=== PATIENT | female | born 1975 | race Caucasian/White ===

== ENCOUNTER 2016-08-16 07:00 | Day surgery (SDC) | payer OTHER ==
[~2016-08-16 07:00] MED LIST: FENTANYL PF 100 MCG/2 ML VIAL. IV PRN; HYDR-2762 PO; HYDROMORPHONE 2 MG/ML VIAL. IV PRN; IV RINGERS,LACTATED 1000ML 1,000 ML IV SCH; LIDOCAINE 1% 1 ML SYRINGE. ID PRN; METH-37 PO; MORPHINE SULFATE 2 MG/ML DISP.SYRIN. IV PRN; MULT1TAB52 PO; ONDANSETRON PF 4 MG/2 ML VIAL. IV PRN; PROCHLORPERAZINE 10 MG/2 ML VIAL. IV PRN
[2016-08-16] MEDS ORDERED: BUPIVACAINE-EPI 0.25%-1:200000 MPF 30 ML VIAL. ONE (07:01)
[2016-08-16] MEDS ORDERED: MIDAZOLAM HCL 2 MG/2 ML VIAL. ONE (07:43)
[2016-08-16] MEDS ORDERED: ROCURONIUM 50 MG/5 ML VIAL. ONE (07:43)
[2016-08-16] MEDS ORDERED: FENTANYL PF 100 MCG/2 ML VIAL. ONE (07:43)
[2016-08-16] MEDS ORDERED: NEOSTIGMINE METHYLSULFATE 5 MG/5 ML SYRINGE. ONE (08:12)
[2016-08-16] MEDS ORDERED: GLYCOPYRROLATE 1 MG/5 ML VIAL. ONE (08:13)
--- NOTE | 2016-08-16 08:24 | DISCH ---
DISCHARGE INSTRUCTIONS Condition on Discharge Condition on Discharge: Stable Activity After Discharge Activity Instructions for Disc: Activity as tolerated Lifting Instructions after Dis: No heavy lifting Driving Instructions after Dis: Do not drive today Diet after Discharge Diet after Discharge: Regular Contacting the DRJesus after DC Call your doctor for: Concerns you may have Follow-Up Follow up with: Dr. Rubio in 1 week. ROSA RUBIO Jr, MD Aug 16, 2016 08:24
--- NOTE | 2016-08-16 08:24 | PDOC ---
BRIEF OPERATIVE NOTE Pre-Op Diagnosis Sterilization Post-Op Diagnosis Same Procedure Performed [facility] Surgeon Dr. Rubio Anesthesia Type: General Blood Loss 5 ml Specimens Obtained none Findings nml uterus, nml fallopian tubes aletha and ovaries aletha. Complications none Additional Remarks ptROSA Sorensen Jr, MD Aug 16, 2016 08:24
[2016-08-16] MEDS ORDERED: ONDANSETRON PF 4 MG/2 ML VIAL. ONE (08:25)
[2016-08-16] MEDS ORDERED: SEVOFLURANE 31 TO 60 MINUTES. IH ONE (08:25)
[2016-08-16] MEDS ORDERED: DEXAMETHASONE SOD PHOS 20 MG/5 ML VIAL. ONE (08:25)
[2016-08-16] MEDS ORDERED: PROPOFOL 20 ML IV ONE (08:25)
[2016-08-16] MEDS: FENTANYL PF 100 MCG/2 ML VIAL. IV PRN ×3 (08:35→09:12)
[2016-08-16 08:48] LABS: NEG OBC UR NEG; POS OBC UR POS
--- NOTE | 2016-08-16 09:22 | OP ---
DATE OF SURGERY: PREOPERATIVE DIAGNOSIS: Sterilization. POSTOPERATIVE DIAGNOSIS: Sterilization. PROCEDURE: Laparoscopic BTL with Filshie clips. SURGEON: Steven Rubio MD ANESTHESIA: GETA. ESTIMATED BLOOD LOSS: 5 mL. COMPLICATIONS: None. FINDINGS: Normal size uterus. Normal fallopian tubes and ovaries bilaterally. SUMMARY: A 41-year-old 4, para 1, A3 presented for sterilization. She was counseled on risks, benefits and expectations as well as the failure rate and voiced clear understanding to proceed. DESCRIPTION OF PROCEDURE: The patient was taken to surgery suite and placed in the dorsal lithotomy position. She was prepped with Betadine solution for vaginal prep and ChloraPrep for abdominal prep. After adequate anesthesia, a single tooth tenaculum was used to grasp the anterior lip of the cervix. The uterine acorn manipulator was then placed. Attention was now placed on abdomen. Small transverse skin incision made just below the umbilicus with the scalpel. The Veress needle was used to insufflate the abdomen up to 1-1/2 liters CO2 gas. The Veress needle was then removed. A 5 mm trocar was then placed. The scope was positioned. The uterus appeared normal size. Fallopian tubes and ovaries appeared normal bilaterally. A second incision was made in the left lower quadrant, at which an 8 mm port was placed with aid of the Filshie clip applicator. The Filshie clip was applied to the right fallopian tube, totally occluding the fallopian tube at the isthmus region. Same process took place on left fallopian tube. The trocar was then removed under direct visualization. The abdomen was allowed to deflate as much as possible along with mechanical manipulation. The two skin incisions were reapproximated using 4-0 Vicryl suture. A 0.25% Marcaine was placed ____ incision site. The acorn uterine manipulator and single tooth tenaculum were removed. The patient tolerated the procedure well and was taken to recovery room in stable condition. Sponge and needle counts correct x 3. STEVEN RUBIO MD DR: ANGELA/caio JOB#: [id number] / [id number]
[2016-08-16] MEDS ORDERED: OXYCODONE/APAP 5/325 TABLET. PO ONE (09:30)
[2016-08-16 10:20] VITALS: BP 121/70
== END 2016-08-16 10:30 | disposition home or self-care (01) ==
LOC: SURG 07:00
PROVIDERS: ATTEND Obstetrics & Gynecology
DX: Z30.2 Encounter for sterilization (principal); M19.90 Unspecified osteoarthritis, unspecified site; Z87.39 Personal history of other diseases of the musculoskeletal system and connective tissue
CPT/HCPCS: 58671; 81025; A4215; J1100; J2405; J2704; J2710; J3010; J3490; J7120; J2250